=== PATIENT | male | born 1940 | race Caucasian/White ===

== ENCOUNTER → 2018-02-05 | Outpatient (CLI) | payer OTHER ==
[~2018-02-05] MED LIST: ACET325 PO; ASCO500 PO; ASPI81EC PO; ATEN50; ATEN50 PO; CALCAVITDA; CALGLU500; CEPH500 PO; Cephalexin500 M1 PO; Citrate Of Mag300 ML PO; Cranberry300 MG PO; DEXA2 PO; DEXA4 PO; DIGO.125 PO; DIGOX125 MCG; Dulcolax5 MG PO; ERGO400; ERGO400 PO; FENT25TP TOP; FENT50TP TOP; FINA5 PO; FLEC100; FLEC50 PO; GABA300 PO; GUAI600T33 PO; HYDMOR2 PO; MELA3 PO; MULVITA PO; NITR100CA PO; Norco 10-325 T1 EACH PO; OMEP20ER; OMEP20ER PO; OXYC10ER PO; OXYC5; OXYC5 PO; POTA10T PO; Senna8.6 M1 PO; Verotin-Gr Cap1 EACH PO; WARF1 PO; WARF10; WARF5 PO; WARF7.5; WARF7.5 PO
== END ==
LOC: PLD 14:09 → LAB SHORT 14:09
DX: C67.9 Malignant neoplasm of bladder, unspecified (principal); Z93.6 Other artificial openings of urinary tract status
CPT/HCPCS: 88108

== ENCOUNTER 2018-09-29 11:44 | Day surgery (SDC) | payer OTHER ==
[~2018-09-29] VITALS: Ht 188 cm; Wt 74.5 kg
[~2018-09-29 11:44] MED LIST changes: +ACET500; +ATEN25; +CITA20 PO; +CRANBERRY500 M1 PO; +DIGOX125 MCG PO; +LINZESS290 MCG PO; +Multiple Vitam1 EAC1 PO; +Neurontin 300300 MG PO; +Omeprazole20 M1 PO; +Questran4 GM; +TECENTRIQ1200 MG/20 IV; +TOLT4 PO; +VITAMIN D32000 UNIT PO; +Voltaren100 GM TOP; +WARF5
--- NOTE | 2018-09-29 14:11 | NUR ---
09/29/[address] CAUTERIZED AVM DURING EGD 5ML OF NS WAS INJECTED IN POLYP SITE IN COLON
== END 2018-09-29 14:45 | disposition home or self-care (01) ==
LOC: ORSCSDS 11:44
PROVIDERS: Internal Medicine Gastroenterology
PROC: 0DB58ZX Excision of Esophagus, Via Natural or Artificial Opening Endoscopic, Diagnostic (ICD-10-PCS; principal; 2018-09-29 13:00)
PROC: 0DB68ZX Excision of Stomach, Via Natural or Artificial Opening Endoscopic, Diagnostic (ICD-10-PCS; principal; 2018-09-29 13:00)
PROC: 3E0H8GC Introduction of Other Therapeutic Substance into Lower GI, Via Natural or Artificial Opening Endoscopic (ICD-10-PCS; principal; 2018-09-29 13:00)
PROC: 0DBK8ZX Excision of Ascending Colon, Via Natural or Artificial Opening Endoscopic, Diagnostic (ICD-10-PCS; principal; 2018-09-29 13:00)
PROC: 0D568ZZ Destruction of Stomach, Via Natural or Artificial Opening Endoscopic (ICD-10-PCS; principal; 2018-09-29 13:00)
PROC: 0DBL8ZX Excision of Transverse Colon, Via Natural or Artificial Opening Endoscopic, Diagnostic (ICD-10-PCS; principal; 2018-09-29 13:00)
PROC: 0DBM8ZX Excision of Descending Colon, Via Natural or Artificial Opening Endoscopic, Diagnostic (ICD-10-PCS; principal; 2018-09-29 13:00)
DX: R13.10 Dysphagia, unspecified (principal); K29.70 Gastritis, unspecified, without bleeding; Q27.33 Arteriovenous malformation of digestive system vessel; K44.9 Diaphragmatic hernia without obstruction or gangrene; D12.2 Benign neoplasm of ascending colon; D12.3 Benign neoplasm of transverse colon; D12.4 Benign neoplasm of descending colon; K64.1 Second degree hemorrhoids; K57.30 Diverticulosis of large intestine without perforation or abscess without bleeding; Z12.11 Encounter for screening for malignant neoplasm of colon; Z83.71 Family history of colonic polyps; Z86.010 Personal history of colon polyps; I10 Essential (primary) hypertension; E78.00 Pure hypercholesterolemia, unspecified; Z79.899 Other long term (current) drug therapy; Z87.891 Personal history of nicotine dependence
CPT/HCPCS: 88305; 88342; J7120

== ENCOUNTER → 2019-03-19 | Outpatient (CLI) | payer OTHER ==
[~2019-03-19] MED LIST changes: +Lopressor 50 mg50 MG PO
[2019-03-19 08:49] LABS: BASOPHILS ABSOLUTE AUTO 0.03 K/mm3 (0.00-0.23); BASOPHILS PERCENT AUTO 0 % (0-2); EOSINOPHILS ABSOLUTE AUTO 0.14 K/mm3 (0.00-0.68); EOSINOPHILS PERCENT AUTO 2 % (0-6); Hematocrit 36.8 % (37.0-53.0); Hemoglobin 12.1 g/dL (13.5-17.5); IMMATURE GRAN ABSOLUTE AUTO 0.03 K/mm3 (0.00-0.10); IMMATURE GRAN PERCENT AUTO 0 % (0-1); LYMPHOCYTES ABSOLUTE AUTO 1.94 K/mm3 (0.84-5.20); LYMPHOCYTES PERCENT AUTO 20 % (21-46); MONOCYTES ABSOLUTE AUTO 1.38 K/mm3 (0.16-1.47); MONOCYTES PERCENT AUTO 14 % (4-13); Mean Corpuscular HGB 30.1 pg (26.0-34.0); Mean Corpuscular HGB Conc 32.9 g/dL (31.5-36.5); Mean Corpuscular Volume 92 fL (80-100); Mean Platelet Volume 8.9 fL (9.1-12.4); NEUTROPHILS ABSOLUTE AUTO 6.12 K/mm3 (1.96-9.15); NEUTROPHILS PERCENT AUTO 64 % (41-73); Platelet Count 311 K/mm3 (150-400); RDW Coefficient Variation 15.1 % (11.7-14.2); RDW Standard Deviation 50.2 fL (35.1-46.3); Red Blood Cell Count 4.02 M/mm3 (4.30-5.90); White Blood Cell Count 9.64 K/mm3 (4.00-11.30)
[2019-03-19 08:59] LABS: Albumin, Blood 3.6 g/dL (3.4-5.0); Albumin/Globulin Ratio 0.8 (0.8-1.8); Bilirubin, Total 0.6 mg/dL (0.1-1.0); Bun/Creatinine Ratio 15.8 (12.0-20.0); Calcium, Blood 8.9 mg/dL (8.5-10.1); Creatinine, Blood 1.58 mg/dL (0.60-1.20); Globulin, Blood 4.5 g/dL (2.2-4.0); Potassium, Blood 4.1 mmol/L (3.5-5.5); Total Protein, Blood 8.1 g/dL (6.4-8.2)
[2019-03-19 09:13] LABS: Source, Urine Urostomy Bag
[2019-03-19 09:29] LABS: Bacteria Many /hpf; Red Blood Cells, Urine TNTC /hpf (0-2); Squamous Epithelial Cells Not Seen /hpf (Few)
[2019-03-19 09:30] LABS: Renal Epithelial Mod /hpf (0-Rare)
[2019-03-19 09:44] LABS: International Normalized Ratio 2.71; Prothrombin Time Results 26.2 Sec (9.7-11.5)
== END | disposition home or self-care (01) ==
LOC: LAB SHORT 08:43 → LAB EV 08:43
PROVIDERS: Physician Assistant
DX: Z79.01 Long term (current) use of anticoagulants (principal); Z51.81 Encounter for therapeutic drug level monitoring; R31.9 Hematuria, unspecified
CPT/HCPCS: 80053; 81015; 85025; 85610; 87086

== ENCOUNTER 2019-05-27 22:17 | Emergency (ER) | payer OTHER ==
[~2019-05-27] VITALS: Ht 188 cm; Wt 85.3 kg
[~2019-05-27 22:17] MED LIST changes: -Lopressor 50 mg50 MG PO
[2019-05-27 23:01] LABS: BASOPHILS ABSOLUTE AUTO 0.02 K/mm3 (0.00-0.23); BASOPHILS PERCENT AUTO 0 % (0-2); EOSINOPHILS ABSOLUTE AUTO 0.22 K/mm3 (0.00-0.68); EOSINOPHILS PERCENT AUTO 2 % (0-6); Hematocrit 39.6 % (37.0-53.0); Hemoglobin 12.5 g/dL (13.5-17.5); IMMATURE GRAN ABSOLUTE AUTO 0.04 K/mm3 (0.00-0.10); IMMATURE GRAN PERCENT AUTO 0 % (0-1); LYMPHOCYTES PERCENT AUTO 23 % (21-46); MONOCYTES ABSOLUTE AUTO 1.06 K/mm3 (0.16-1.47); MONOCYTES PERCENT AUTO 9 % (4-13); Mean Corpuscular HGB Conc 31.6 g/dL (31.5-36.5); Mean Corpuscular Volume 95 fL (80-100); NEUTROPHILS ABSOLUTE AUTO 7.64 K/mm3 (1.96-9.15); NEUTROPHILS PERCENT AUTO 66 % (41-73); Platelet Count 411 K/mm3 (150-400); RDW Coefficient Variation 14.4 % (11.7-14.2); RDW Standard Deviation 50.3 fL (35.1-46.3); Red Blood Cell Count 4.17 M/mm3 (4.30-5.90); White Blood Cell Count 11.58 K/mm3 (4.00-11.30)
[2019-05-27 23:23] LABS: Alanine Aminotransfer (ALT/SGP 27 U/L (12-78); Albumin, Blood 3.5 g/dL (3.4-5.0); Albumin/Globulin Ratio 0.7 (0.8-1.8); Alk Phos 82 U/L (50-136); Anion Gap 8 mmol/L (6-16); Aspartate Aminotrans (AST/SGOT 15 U/L (12-37); Bilirubin, Total 0.5 mg/dL (0.1-1.0); Blood Urea Nitrogen 27 mg/dL (8-24); Bun/Creatinine Ratio 22.5 (12.0-20.0); CO2, Blood 27 mmol/L (21-32); Calcium, Blood 9.3 mg/dL (8.5-10.1); Chloride, Blood 104 mmol/L (98-108); Glomerular Filtration Rate >60 (60-); Glucose, Blood 138 mg/dL (70-99); Potassium, Blood 3.8 mmol/L (3.5-5.5); Sodium, Blood 139 mmol/L (136-145); Total Protein, Blood 8.5 g/dL (6.4-8.2); Troponin I <0.015 ng/mL (0.000-0.040)
[2019-05-28] MEDS ORDERED: Lopressor 50 mg50 MG PO (02:25)
== END 2019-05-28 02:40 | disposition home or self-care (01) ==
LOC: ER 22:17
PROVIDERS: Emergency Medicine
DX: I48.91 Unspecified atrial fibrillation (principal); Z87.891 Personal history of nicotine dependence; Z79.899 Other long term (current) drug therapy; Z85.51 Personal history of malignant neoplasm of bladder
CPT/HCPCS: 36415; 71046; 80053; 84484; 85025; 93005; 93010; 96361; 96374; 99285-25; J7030

== ENCOUNTER → 2019-08-22 | Outpatient (CLI) | payer OTHER ==
[~2019-08-22] MED LIST changes: +Lopressor 50 mg50 MG PO
[2019-08-24 19:39] LABS: Adenovirus F 40/41 Not Detected (NOT DETECT); Astrovirus Not Detected (NOT DETECT); Campylobacter Sp Not Detected (NOT DETECT); Cryptosporidium Not Detected (NOT DETECT); Cyclospora Cayetanensis Not Detected (NOT DETECT); E. Coli O157 Not Detected (NOT DETECT); Entamoeba Histolytica Not Detected (NOT DETECT); Enteroaggregative E. coli-EAEC Not Detected (NOT DETECT); Enteropathogenic E. coli-EPEC Detected (NOT DETECT); Enterotoxigenic E. coli-ETEC Not Detected (NOT DETECT); Giardia Lamblia Not Detected (NOT DETECT); Norovirus GI/GII Not Detected (NOT DETECT); Plesiomonas Shigelloides Not Detected (NOT DETECT); Rotavirus A Not Detected (NOT DETECT); Salmonella Sp Not Detected (NOT DETECT); Sapovirus Not Detected (NOT DETECT); Shiga Toxin-prod E. coli-STEC Not Detected (NOT DETECT); Shigella/Enteroin E. coli-EIEC Not Detected (NOT DETECT); Vibrio Cholerae Not Detected (NOT DETECT); Vibrio Sp Not Detected (NOT DETECT); Yersinia Enterocolitica Not Detected (NOT DETECT)
== END | disposition home or self-care (01) ==
LOC: OLS 15:30 → LAB SHORT 15:30
PROVIDERS: Physician Assistant Surgical
DX: R19.7 Diarrhea, unspecified (principal)
CPT/HCPCS: 0097U

== ENCOUNTER 2020-01-05 08:21 | Day surgery (SDC) | payer OTHER ==
[~2020-01-05] VITALS: Ht 188 cm; Wt 79.1 kg
[~2020-01-05 08:21] MED LIST changes: +ASPI325 PO
--- NOTE | 2020-01-05 09:04 | NUR ---
01/05/20 0904 Jeremi Hastings PATIENT DETERMINED TO BE ASA APPROPRIATE FOR PROPOFOL SEDATION PRIOR TO START OF PROCEDURE BY 3-LEAD EKG REVIEWED WITH PHYSICIAN PRIOR TO START OF PROCEDURE.Patient to ENDO 1History, Chart, Medications and Allergies reviewed before start of procedure.MONITOR INTACT WITH CONTINUOUS PULSE OXIMETRY AND INTERMITTENT BP.O2 VIA N/C INTACT THROUGHOUT SEDATION/PROCEDURE.
--- NOTE | 2020-01-05 10:26 | NUR ---
Patient up to Ambulate independently WITH WALKER TO BATHROOM. Discharge instructions reviewed with patient. Patient verbalizes understanding. Copy given to patient to take home. Discharged via wheelchair to private car for ride home.
== END 2020-01-05 10:45 | disposition home or self-care (01) ==
LOC: ORSCMMR 08:21 → ORD 09:00 → ORSCMMR 09:00
PROVIDERS: Internal Medicine Gastroenterology
PROC: 0DBE8ZX Excision of Large Intestine, Via Natural or Artificial Opening Endoscopic, Diagnostic (ICD-10-PCS; principal; 2020-01-05 09:00)
PROC: 0DBK8ZX Excision of Ascending Colon, Via Natural or Artificial Opening Endoscopic, Diagnostic (ICD-10-PCS; principal; 2020-01-05 09:00)
DX: R19.7 Diarrhea, unspecified (principal); D12.2 Benign neoplasm of ascending colon; K52.9 Noninfective gastroenteritis and colitis, unspecified; I10 Essential (primary) hypertension; K22.70 Barrett's esophagus without dysplasia; Z79.899 Other long term (current) drug therapy; Z79.82 Long term (current) use of aspirin
CPT/HCPCS: 88305; J2704; J7120

== ENCOUNTER → 2020-02-11 | Outpatient (CLI) | payer OTHER ==
[2020-02-11 15:26] LABS: Adenovirus F 40/41 Not Detected (NOT DETECT); Astrovirus Not Detected (NOT DETECT); Campylobacter Sp Not Detected (NOT DETECT); Cryptosporidium Not Detected (NOT DETECT); Cyclospora Cayetanensis Not Detected (NOT DETECT); E. Coli O157 Not Detected (NOT DETECT); Entamoeba Histolytica Not Detected (NOT DETECT); Enteroaggregative E. coli-EAEC Not Detected (NOT DETECT); Enteropathogenic E. coli-EPEC Not Detected (NOT DETECT); Enterotoxigenic E. coli-ETEC Not Detected (NOT DETECT); Giardia Lamblia Not Detected (NOT DETECT); Norovirus GI/GII Not Detected (NOT DETECT); Plesiomonas Shigelloides Not Detected (NOT DETECT); Rotavirus A Not Detected (NOT DETECT); Salmonella Sp Not Detected (NOT DETECT); Sapovirus Not Detected (NOT DETECT); Shiga Toxin-prod E. coli-STEC Not Detected (NOT DETECT); Shigella/Enteroin E. coli-EIEC Not Detected (NOT DETECT); Vibrio Cholerae Not Detected (NOT DETECT); Vibrio Sp Not Detected (NOT DETECT); Yersinia Enterocolitica Not Detected (NOT DETECT)
== END | disposition home or self-care (01) ==
LOC: LAB 06:00 → LAB SHORT 06:00 → EDSTATUS 12-29 12:10 → LAB FUT 12-29 12:10
PROVIDERS: Internal Medicine Gastroenterology
DX: R19.7 Diarrhea, unspecified (principal)
CPT/HCPCS: 0097U

== ENCOUNTER → 2021-02-06 | Outpatient (CLI) | payer OTHER ==
[2021-02-06 14:23] LABS: Creatinine Urine 43.2 mg/dL (27.00-270.00)
== END | disposition home or self-care (01) ==
LOC: LAB SHORT 06:30 → LAB 06:30
PROVIDERS: Internal Medicine Medical Oncology
DX: C67.6 Malignant neoplasm of ureteric orifice (principal)
CPT/HCPCS: 81050; 82570; 84156

== ENCOUNTER → 2022-05-29 | Outpatient (CLI) | payer OTHER ==
[~2022-05-29] MED LIST changes: +ACETAMINOPHEN500 MG PO; +ANORO ELLIPTA1 EACH INH; +ATOR40TA PO; +Amiodarone HCl200 MG PO; +ELIQUIS5 M2 PO; +FAMO20 PO; +LOSA25 PO; +METO100 PO; +PRED20 PO; +THERA-D2000 UNIT PO
[2022-05-29 14:13] LABS: Protein, Urine Random 199.5 mg/dL (0.0-11.9)
[2022-05-29 14:36] LABS: Creatinine, Urine Random 64.1 mg/dL (27.00-270.00); Protein/Creat Ratio, Ur Random 3.1
== END | disposition home or self-care (01) ==
LOC: LAB SHORT 11:29 → LAB 11:29
PROVIDERS: Internal Medicine Nephrology
DX: N18.32 Chronic kidney disease, stage 3b (principal); R31.9 Hematuria, unspecified; R80.9 Proteinuria, unspecified
CPT/HCPCS: 82043; 82570; 84156

== ENCOUNTER 2022-07-01 12:10 | Inpatient (IN) | payer OTHER, MEDICARE ==
[~2022-07-01] VITALS: Ht 188 cm; Wt 81.0 kg
[2022-07-01 13:02] LABS: BASOPHILS ABSOLUTE AUTO 0.01 K/mm3 (0.00-0.23); BASOPHILS PERCENT AUTO 0 % (0-2); EOSINOPHILS PERCENT AUTO 0 % (0-6); Hematocrit 41.1 % (37.0-53.0); Hemoglobin 13.8 g/dL (13.5-17.5); IMMATURE GRAN ABSOLUTE AUTO 0.01 K/mm3 (0.00-0.10); IMMATURE GRAN PERCENT AUTO 0 % (0-1); LYMPHOCYTES ABSOLUTE AUTO 1.38 K/mm3 (0.84-5.20); LYMPHOCYTES PERCENT AUTO 26 % (21-46); MONOCYTES PERCENT AUTO 9 % (4-13); Mean Corpuscular HGB 31.6 pg (26.0-34.0); Mean Corpuscular HGB Conc 33.6 g/dL (31.5-36.5); Mean Corpuscular Volume 94 fL (80-100); Mean Platelet Volume 9.6 fL (9.1-12.4); NEUTROPHILS PERCENT AUTO 64 % (41-73); Platelet Count 227 K/mm3 (150-400); RDW Coefficient Variation 14.9 % (11.7-14.2); RDW Standard Deviation 51.9 fL (35.1-46.3); Red Blood Cell Count 4.37 M/mm3 (4.30-5.90)
[2022-07-01 13:20] LABS: Albumin/Globulin Ratio 0.8 (0.8-1.8); Bilirubin, Total 0.6 mg/dL (0.1-1.0); Bun/Creatinine Ratio 23.7 (12.0-20.0); Calcium, Blood 8.9 mg/dL (8.5-10.1); Creatinine, Blood 1.69 mg/dL (0.60-1.20); Potassium, Blood 3.5 mmol/L (3.5-5.5)
[2022-07-01] MEDS ORDERED: METO50 PO (14:18)
[2022-07-01] MEDS ORDERED: PRED20 PO (22:01)
--- NOTE | 2022-07-01 23:34 | NUR ---
ADMISSION: PT ARRIVED TO UNIT AT 2200. ABLE TO TRANSFER VIA SBA FROM [facility] TO BED. PT ALERT AND ORIENTED X4, ABLE TO FOLLOW COMMANDS AND MAKE NEEDS KNOWN. HR AFIB 140'S. CARDIZEM GTT IN RAC, TITRATED TO 15MG/HR. MAP >65. NO COMPLAINTS OF CP OR PRESSURE. ON RA SATING >95%. AFEBRILE. PT HAS HX OF BLAADER CANCER, UROSTOMY IN PLACE DRAINING YELLOW URINE TO GRAVITY. RADIAL PULSES STRONG AND EQUAL. R PEDAL PULSE NON PALPABLE, PT STATES THIS IS NORMAL, HX OF DROP FOOT. L PEDAL PULSE FAINT. SKIN, PINK, WARM AND DRY. MEDICATION AND HISTORY REVIEWED WITH AT BEDSIDE. PT ORIENTED TO ROOM AND CALL LIGHT SYSTEM. BED IN LOW, CALL LIGHT IN REACH.
--- NOTE | 2022-07-02 04:14 | NUR ---
SHIFT SUMMARY: PT REMAINS ALERT AND ORIENTED X4, ABLE TO FOLLOW COMMANDS AND MAKE NEEDS KNOWN. SYSTOLIC 90'S DIASTOLIC 80'S, MAP >65, HR REMAINS AFIB 120, CARDIZEM CURRENTLY GTT @5MG/HR. AFEBRILE. SATING >95% ON RA. PT HAS UROSTOMY IN PLACE, APPROX 1200 ML OUT THIS SHIFT. PT STATES NO BM SINCE 06/28, NO BM THIS SHIFT. PT REPOS IND IN BED. BED IN LOW, CALL LIGHT IN REACH, WILL REPORT TO ONCOMING RN.
[2022-07-02 04:56] LABS: Bun/Creatinine Ratio 22.5 (12.0-20.0); Calcium, Blood 8.7 mg/dL (8.5-10.1); Creatinine, Blood 1.51 mg/dL (0.60-1.20); Potassium, Blood 3.2 mmol/L (3.5-5.5)
--- NOTE | 2022-07-02 05:03 | NUR ---
UPDATE: PT CONVERTED FROM AIFB TO NSR @7679. HR 70'S.
--- NOTE | 2022-07-02 08:00 | NUR ---
ASSUMED CARE AT APPROXIMATELY 0720 PT CONVERTED FROM NSR TO AFIB WITH A RATE IN THE 120'S. BP STABLE. O2 SATS >90% ON RA. PT DENIES ANY SYMPTONS OF ELEVATED HEART RATE. PT DENIES ANY PAIN. PT SITTING UP EATING BREAKFAST. UROSTOMY WITH CLEAR URINE OUTPUT. DR. JOHNSON AT BEDSIDE AND NOTIFIED OF RHYTHM CHANGE. DR. MAR CONSULTED. WILL CONTINUE TO MONITOR CLOSELY
--- NOTE | 2022-07-02 17:23 | NUR ---
SHIFT SUMMARY PT REMAINS ALERT AND ORIENTED. O2 SATS REMAIN ABOVE 90% ON RA. HR CONTINUES TO BE AFIB RANGING FROM 120-140. BP WAS SOFT THIS AFTERNOON, BUT HAS IMPROVED. PT ASYMPTOMATIC WITH HIGH HR. UROSTOMY WITH CLEAR YELLOW OUTPUT. PT REPOSITIONING HIMSELF IN THE BED. WILL CONTINUE TO MONITOR AND REPORT TO ONCOMING RN
--- NOTE | 2022-07-02 21:14 | NUR ---
NOTIFIED: CALLED DR MAR DUE TO PT BP 90/73 (80), HEART RATE SUSTAINING BETWEEN 150-170 AND 100MG METOPROLOL DUE NOW. HE STATED TO GIVE 50MG METOPROLOL FOR THIS DOSE, GIVE 40MEQ K PO NOW. AFTER K IS GIVEN, GIVE LOADING DOSE OF DIGOXIN FOLLOWED BY TWO MORE DOSES IV. INFORMED HIM THAT PT PUT OUT 2L URINE FOR DAY SHIFT WELL.
[2022-07-03 04:47] LABS: Bun/Creatinine Ratio 21.5 (12.0-20.0); Calcium, Blood 8.5 mg/dL (8.5-10.1); Creatinine, Blood 1.58 mg/dL (0.60-1.20); Magnesium, Blood 1.7 mg/dL (1.6-2.4); Potassium, Blood 3.8 mmol/L (3.5-5.5)
--- NOTE | 2022-07-03 06:23 | NUR ---
SHIFT SUMMARY: PT HEART RATE INCREASED TO 150-170s AND BP SOFT SBP [address] MAR WHO STATED TO GIVE 50 OF THE 100MG ORDERED METOPROLOL THIS ONE TIME. WELL 40 OF K AND A LOADING DOSE OF DIGOXIN FOLLOWED BY 2 MORE DIGOXIN DOSES IV. PATIENTS BECAME HYPOTENSIVE WITH A MAP OF 58. DR. ROSENBERG ORDERED 1 TIME DOSE OF 5MG MIDODRINE. PT BLOOD PRESSURE 145/104 THIS AM AFTER MIDODRINE. DR. MAR CAME BY AND RN INFORMED HIM OF EVENTS AND HE STATED TO GIVE METOPROLOL 100MG LONG PT IS NOT SYMPTOMATIC, AND TO TAKE MANUAL BLOOD PRESSURES. . PT PT OUT OVER 2L URINE OUTPUT TO UROSTOMY AND HAD 1 BM OVERNIGHT. BREATHING EASILY ON ROOM AIR.
[2022-07-04 05:15] LABS: Albumin, Blood 2.9 g/dL (3.4-5.0); Albumin/Globulin Ratio 0.8 (0.8-1.8); Bilirubin, Total 0.4 mg/dL (0.1-1.0); Bun/Creatinine Ratio 23.3 (12.0-20.0); Calcium, Blood 8.9 mg/dL (8.5-10.1); Creatinine, Blood 1.5 mg/dL (0.60-1.20); Globulin, Blood 3.8 g/dL (2.2-4.0); Magnesium, Blood 2.3 mg/dL (1.6-2.4); Potassium, Blood 3.8 mmol/L (3.5-5.5); Total Protein, Blood 6.7 g/dL (6.4-8.2)
--- NOTE | 2022-07-04 05:56 | NUR ---
MR. MELÉNDEZ HAS A FAIRLY UNEVENTFUL NIGHT AND WAS ABLE TO REST COMFORTABLY. HEART RHYTHM ALTERNATED BETWEEN SINUS RHYTHM WITH PACs AND ATRIAL FIBRILLATION WITH HEART RATES IN THE 60S -70S UNTIL ABOUT 01:30. AT THAT TIME, HIS HEART RATE INCREASED TO 80S - 110S IN ATRIAL FIBRILLATION. BLOOD PRESSURE REMAINS STABLE AND MR. MELÉNDEZ HAD NO COMPLAINTS OF MALAISE OR SHORTNESS OF BREATH.
--- NOTE | 2022-07-04 18:13 | NUR ---
PT SUMMARY: NO ACUTE CHANGE FOR THE SHIFT PT HAS BEEIN IN AND OUT OF AFIB AND SR. RATE IS MOSTLY CONTROLLED 100-140'S WHEN AFIB, 70-80'S ON SR. BP SYSTOLIC 110'S, SATS ABOVE 95% ON RA, AFEBRILE. PT HAS BEEN AMBULATING TO THE BATHROOM, UROSTOMY DRESSING WAS REPLACED BY TODAY BROUGHT IN SOME SUPPLIES FROM HOME. PT HAD ATLEAST 2L OUTPUT TODAY TORSEMIDE DOSE WAS GIVEN TODAY. PT DENIES ANY CHEST PAIN/PRESSURE, C/O HEADACHE 11/26 WHICH IS RELIEVED BY TYLENOL. NO OTHER ISSUES ENCOUNTERED FOR THE SHIFT, PT WITH GREAT APPETITE, CALLS APPROPRIATELY, WILL REPORT TO ONCOMING SHIFT
[2022-07-05 04:35] LABS: Albumin, Blood 3.1 g/dL (3.4-5.0); Albumin/Globulin Ratio 0.8 (0.8-1.8); Bilirubin, Total 0.8 mg/dL (0.1-1.0); Bun/Creatinine Ratio 22.7 (12.0-20.0); Calcium, Blood 8.8 mg/dL (8.5-10.1); Creatinine, Blood 1.72 mg/dL (0.60-1.20); Potassium, Blood 3.4 mmol/L (3.5-5.5); Total Protein, Blood 7.1 g/dL (6.4-8.2)
--- NOTE | 2022-07-05 05:02 | NUR ---
SHIFT SUMMARY PT A&Ox4, CALLS AND COMMUNICATES NEEDS APPROPRIATELY. VSS, BP STABLE, PT REMAINED IN SINUS 60-70's THROUGHOUT THE SHIFT, DENIES CP/PRESSURE, Sp02> 92% RA, DENIES SOB. PT IND IN ROOM. UROSTOMY PATENT AND DRAINING TO GRAVITY. PT DENIED PAIN THROUGHOUT THIS SHIFT AND WAS ABLE TO SLEEP SOUNDLY. NO ACUTE EVENTS THIS SHIFT, WILL REPORT TO DAY SHIFT RN.
[2022-07-05] MEDS ORDERED: METO50ER PO (14:00)
[2022-07-05] MEDS ORDERED: PACERONE400 M3 PO (14:02)
[2022-07-05] MEDS ORDERED: AMIODARONE HCL200 M1 PO (14:04)
[2022-07-05] MEDS ORDERED: AMIODARONE HCL200 MG PO (14:04)
[2022-07-05] MEDS ORDERED: TORSE20 PO (14:06)
== END 2022-07-05 15:10 | disposition home or self-care (01) | DRG 308 ==
LOC: ER 12:10 → PCU 19:54
PROVIDERS: Internal Medicine Cardiovascular Disease; Nurse Practitioner Acute Care; Physician Assistant; ADMIT Internal Medicine
PROC: 5A2204Z Restoration of Cardiac Rhythm, Single (ICD-10-PCS; principal; 2022-07-01)
DX: I48.0 Paroxysmal atrial fibrillation (principal); I50.33 Acute on chronic diastolic (congestive) heart failure; C79.51 Secondary malignant neoplasm of bone; I13.0 Hypertensive heart and chronic kidney disease with heart failure and stage 1 through stage 4 chronic kidney disease, or unspecified chronic kidney disease; I48.92 Unspecified atrial flutter; I25.10 Atherosclerotic heart disease of native coronary artery without angina pectoris; N18.30 Chronic kidney disease, stage 3 unspecified; I95.9 Hypotension, unspecified; K22.70 Barrett's esophagus without dysplasia; J44.9 Chronic obstructive pulmonary disease, unspecified; C67.9 Malignant neoplasm of bladder, unspecified; I73.9 Peripheral vascular disease, unspecified; Z88.0 Allergy status to penicillin; Z79.01 Long term (current) use of anticoagulants; Z79.899 Other long term (current) drug therapy
CPT/HCPCS: 36415; 71046; 80048; 80053; 83690; 83735; 83880; 84484; 85025; 92960; 93005; 93010; 94640; 94664; 94760; 94762; 96365-59; 96367-59; 96375-59; 96376-59; 98960; 99152; 99291-25; A9270; J1160; J3475; J7030; J7040

== ENCOUNTER → 2023-01-04 | Outpatient (CLI) | payer OTHER ==
[~2023-01-04] MED LIST changes: +AMIODARONE HCL200 M1 PO; +AMIODARONE HCL200 MG PO; +DOXY100 PO; +METO50 PO; +METO50ER PO; +PACERONE400 M3 PO; +TORSE20 PO
[2023-01-04 10:04] LABS: BASOPHILS ABSOLUTE AUTO 0.04 K/mm3 (0.00-0.23); BASOPHILS PERCENT AUTO 1 % (0-2); EOSINOPHILS ABSOLUTE AUTO 0.33 K/mm3 (0.00-0.68); EOSINOPHILS PERCENT AUTO 5 % (0-6); Hematocrit 34.2 % (37.0-53.0); Hemoglobin 11.1 g/dL (13.5-17.5); IMMATURE GRAN ABSOLUTE AUTO 0.03 K/mm3 (0.00-0.10); IMMATURE GRAN PERCENT AUTO 0 % (0-1); LYMPHOCYTES ABSOLUTE AUTO 1.65 K/mm3 (0.84-5.20); LYMPHOCYTES PERCENT AUTO 25 % (21-46); MONOCYTES ABSOLUTE AUTO 0.98 K/mm3 (0.16-1.47); MONOCYTES PERCENT AUTO 15 % (4-13); Mean Corpuscular HGB 28.7 pg (26.0-34.0); Mean Corpuscular HGB Conc 32.5 g/dL (31.5-36.5); Mean Corpuscular Volume 88 fL (80-100); Mean Platelet Volume 9.2 fL (9.1-12.4); NEUTROPHILS ABSOLUTE AUTO 3.67 K/mm3 (1.96-9.15); NEUTROPHILS PERCENT AUTO 55 % (41-73); Platelet Count 298 K/mm3 (150-400); RDW Coefficient Variation 15.7 % (11.7-14.2); RDW Standard Deviation 50.8 fL (35.1-46.3); Red Blood Cell Count 3.87 M/mm3 (4.30-5.90)
[2023-01-04 10:13] LABS: Bun/Creatinine Ratio 21.7 (12.0-20.0); Calcium, Blood 9.4 mg/dL (8.5-10.1); Creatinine, Blood 1.43 mg/dL (0.60-1.20); Potassium, Blood 3.5 mmol/L (3.5-5.5)
== END | disposition home or self-care (01) ==
LOC: LAB 09:17 → LAB SHORT 09:17
PROVIDERS: Nurse Practitioner Family
DX: R31.9 Hematuria, unspecified (principal)
CPT/HCPCS: 80048; 85025

== ENCOUNTER → 2023-01-04 | Outpatient (CLI) | payer OTHER | END | disposition home or self-care (01) | LOC: LAB 09:00 → LAB SHORT 09:00 | DX: N39.0 Urinary tract infection, site not specified (principal) | CPT/HCPCS: 87077; 87086; 87186 ==

== ENCOUNTER 2023-07-15 06:09 | Inpatient (IN) | payer OTHER ==
[2023-07-15] VITALS (7 sets, daily range): BP systolic 97–122; BP diastolic 61–85
[~2023-07-15] VITALS: Ht 188 cm; Wt 89.7 kg
[2023-07-15 06:49] LABS: BASOPHILS ABSOLUTE AUTO 0.04 K/mm3 (0.00-0.23); BASOPHILS PERCENT AUTO 0 % (0-2); EOSINOPHILS ABSOLUTE AUTO 0.01 K/mm3 (0.00-0.68); EOSINOPHILS PERCENT AUTO 0 % (0-6); Hematocrit 38.1 % (37.0-53.0); Hemoglobin 12.2 g/dL (13.5-17.5); IMMATURE GRAN ABSOLUTE AUTO 0.07 K/mm3 (0.00-0.10); IMMATURE GRAN PERCENT AUTO 1 % (0-1); LYMPHOCYTES ABSOLUTE AUTO 0.85 K/mm3 (0.84-5.20); LYMPHOCYTES PERCENT AUTO 8 % (21-46); MONOCYTES ABSOLUTE AUTO 0.25 K/mm3 (0.16-1.47); MONOCYTES PERCENT AUTO 2 % (4-13); Mean Corpuscular HGB 28.3 pg (26.0-34.0); Mean Corpuscular Volume 88 fL (80-100); Mean Platelet Volume 9.3 fL (9.1-12.4); NEUTROPHILS ABSOLUTE AUTO 9.06 K/mm3 (1.96-9.15); NEUTROPHILS PERCENT AUTO 88 % (41-73); Platelet Count 244 K/mm3 (150-400); RDW Coefficient Variation 23.6 % (11.7-14.2); Red Blood Cell Count 4.31 M/mm3 (4.30-5.90); White Blood Cell Count 10.28 K/mm3 (4.00-11.30)
[2023-07-15] MEDS ORDERED: METO50ER PO (06:49)
[2023-07-15] MEDS ORDERED: FORMOTEROL20 MCG/2 M NEB (06:50)
[2023-07-15] MEDS ORDERED: BUDESONIDE0.5 MG/2 M NEB (06:51)
[2023-07-15] MEDS ORDERED: ALBU90OI INH (06:52)
[2023-07-15 07:01] LABS: Albumin, Blood 3.3 g/dL (3.4-5.0); Albumin/Globulin Ratio 0.8 (0.8-1.8); Bilirubin, Total 0.8 mg/dL (0.1-1.0); Bun/Creatinine Ratio 14.7 (12.0-20.0); Calcium, Blood 9.3 mg/dL (8.5-10.1); Creatinine, Blood 1.5 mg/dL (0.60-1.20); Globulin, Blood 4.4 g/dL (2.2-4.0); Potassium, Blood 3.8 mmol/L (3.5-5.5); Total Protein, Blood 7.7 g/dL (6.4-8.2)
[2023-07-15 07:11] LABS: Base Excess Venous 5.1 mmol/L; Bicarbonate Venous 27.2 mmol/L (24.0-30.0); PCO2 Venous 47.6 mmHg (38-42); pH Blood Venous 7.41 (7.34-7.37)
[2023-07-15 07:29] LABS: Source, Urine Urostomy Bag
[2023-07-15 07:32] LABS: Influenza A, PCR NEGATIVE (NEGATIVE); Influenza B, PCR NEGATIVE (NEGATIVE); Resp Syncytial Virus, PCR NEGATIVE (NEGATIVE); SARS-Cov-2 (COVID-19) PCR, MMC NEGATIVE (NEGATIVE)
[2023-07-15 07:34] LABS: Appearance, Urine Hazy (Clear); Bilirubin, Urine Neg (Neg); Blood, Urine 5+ (Neg); Color, Urine Amber (P-Yellow); Glucose Qualitative, Urine Neg (Neg); Ketones, Urine Neg (Neg); Leukocyte Esterase, Urine 3+ (Neg); Nitrite, Urine Pos (Neg); Protein, Urine 4+ (Neg); Specific Gravity, Urine 1.015 (1.003-1.022); Urobilinogen, Urine NORM (Normal); pH, Urine 6.5 (5.0-8.0)
[2023-07-15 07:42] LABS: Bacteria Many /hpf; Red Blood Cells, Urine TNTC /hpf (0-2); Squamous Epithelial Cells Rare /hpf (Few); White Blood Cells, Urine 25-50 /hpf (0-5)
[2023-07-15 07:53] LABS: U Amphetamine Screen Not Detected; U Barbituate Screen Not Detected; U Benzodiazapine Screen Not Detected; U Buprenorphine Screen Not Detected; U Cannabinoids Screen Not Detected; U Cocaine Screen Not Detected; U Methadone Screen Not Detected; U Methamphetamine Screen Not Detected; U Opiates Screen Not Detected; U Oxycodone Screen Not Detected; U Phencyclidine Screen Not Detected
--- NOTE | 2023-07-15 12:07 | NUR ---
PT ARRIVED TO ROOM AT 1134. PT AOX4 AND COOPERATIVE OF CARE. PT HAS AT BEDSIDE AND CALL LIGHT WITHIN REACH. PT SETTLED IN NO DISTRESS NOTED AT THIS TIME. WILL CONTINUE TO MONITOR.
--- NOTE | 2023-07-15 16:58 | NUR ---
PT IS AOX4 AND COOPERATIVE OF CARE. PT DENIES ANY PAIN AND HAS BEEN SATING WELL ON RA. NO DISTRESS NOTED AT THIS TIME. CALL LIGHT IS WITHIN REACH. PT HAS NOT GOTTEN OUT OF BED AT THIS TIME HE HAS A UROSTOMY BAG. PT RESTING CURRENTLY AFEBRILE. WILL CONTINUE TO MONITOR.
[2023-07-15] MEDS ORDERED: IRON18 MG PO (17:05)
--- NOTE | 2023-07-15 18:40 | NUR ---
PT HAD AN INCREASE TROPONIN CALLED IN AND DR SÁNCHEZ ORDERED AN EKG. RESULTS WERE SHOWING PT WAS IN AFIB. DR SÁNCHEZ ORDERED A MEDICATION IN WHICH PT NEEDED TO BE MOVED TO PCU. REPORT WAS GIVEN FOR PT PRIOR TO TRANSFER TO [facility]. PT DENIED ANY CHANGES AND NO CHEST PAIN NOTED. TRAVELED DOWN TO NEW ROOM WITH PERSONAL BELONGINGS.
[2023-07-16] VITALS (17 sets, daily range): BP systolic 97–122; BP diastolic 61–98
--- NOTE | 2023-07-16 01:56 | NUR ---
UPDATE PT HRR REMAINS AFIB W/RATE IN 130 - 140'S. BP 120/90 WITH MAP OF 99. PT DENIES CP/PRESSURE, DIZZINESS, SOB OR PALPITATIONS. THIS RN ADMINISTERED 5MG LOPRESSOR IV PER EMAR FOR HR. WILL CONTINUE TO MONITOR AND REASSESS. PT A&O X4 AND INTERACTING WITH THIS RN. PT DENIES NEEDS AT THIS TIME. CALL LIGHT IN REACH
--- NOTE | 2023-07-16 05:40 | NUR ---
SUMMARY THIS RN ASSUMED CARE OF PT AT 1900, REPORT FROM VAUGHN ORELLANA. PT A&O X 2-3; PERIODS OF FORGETFULNESS NOTED ALTHOUGH PT ANSWERS ORIENTATIONS QUESTIONS ACCURATELY. PT'S AT BEDSIDE AT START OF SHIFT. AT START OF SHIFT PT IN NORMAL SINUS RHYTHM WITH RATE IN 80'S, AROUND 1999 PT CONVERTED TO AFIB W/RATE IN 80'S - 90'S. ABOUT 2029 PT HR INCREASED TO 130'S, PT ASYMPTOMATIC. 2099 PT HR INCREASED TO 150'S. THIS RN IN TO SEE PT, PT STATES "HE FEELS LIKE CRAP" BUT DENIES CP/PRESSURE, SOB, DIZZINESS, OR PALPITATIONS. BP 106/79 (MAP OF 89). AMIO GTT STARTED PER EMAR. PT CONTINUES TO BE IN AFIB W/RATE OF 100 - 120'S, BP 1 TEENS - 120'S. PT REPORTS HE IS FEELING "SOMEWHAT BETTER". UROSTOMY IN PLACE AND DRAINING TO GRAVITY. PT REPOSITIONING INDEPENDENTLY. PT HAS OPEN CUT ON R BIG TOE; PT REPORTS HE "SCRAPED IT AT HOME WRESTLING WITH GRANDDAUGHTER". THIS RN DRESSED AND APPLIED OINTMENT PER EMAR. WILL UPDATE ONCOMING RN, CALL LIGHT IN REACH. AMIO GTT STILL INFUSING AT 16.7 MLS/HR.
--- NOTE | 2023-07-16 06:41 | NUR ---
0557 - PT REPORTS CHEST PAIN 5/10 L SIDED, NON RADIATING AND TENDER TO PALPATION. ENDROSES SOA. VITALS OBTAINED AND STABLE PER PT TREND. EKG OBTAINED. NOTIFIED DR. GAITAN OF CHEST PAIN, EKG, AND TYLENOL PO GIVEN. REPEAT TROPONIN ORDERED THIS AM. NO FURTHER ORDERS AT THIS TIME. UPDATED PRIMARY RN
[2023-07-16 10:26] LABS: Vancomycin, Random 14.7 ug/mL
--- NOTE | 2023-07-16 18:10 | NUR ---
SHIFT SUMMARY; ASSUMED CARE AT 0700. A/A/OX4 WITH SLIGHT INTERMITANT CONFUSION. HR SR 130S-140S. CARDIAC CONSULT TODAY, AMNIO DRIP DC'D AT [address] MAR[address] UROSTOMY IN PLACE DRAINING CLEAR LUIS/YELLOW URINE. MOVES SELF ON GURNEY, RIGHT GREAT TOE WITH DRESSING C/D/I SEE PHOTOS IN CHART. DENIES CP, SOB, SPOUSE AT BEDSIDE DURING SHIFT. VSS, WILL CONTINUE TO MONITOR AND TREAT UNTIL CHANGE OF SHIFT.
[2023-07-17 01:56] VITALS: BP 91/60
[2023-07-17 04:15] LABS: Hemoglobin 12.2 g/dL (13.5-17.5); Mean Corpuscular HGB Conc 32.1 g/dL (31.5-36.5); Mean Corpuscular Volume 87 fL (80-100); Mean Platelet Volume 9.4 fL (9.1-12.4); Platelet Count 217 K/mm3 (150-400); RDW Coefficient Variation 23.5 % (11.7-14.2); Red Blood Cell Count 4.35 M/mm3 (4.30-5.90); White Blood Cell Count 14.91 K/mm3 (4.00-11.30)
[2023-07-17 04:41] LABS: Albumin, Blood 2.7 g/dL (3.4-5.0); Anion Gap 5 mmol/L (6-16); Blood Urea Nitrogen 38 mg/dL (8-24); Bun/Creatinine Ratio 16.6 (12.0-20.0); CO2, Blood 31 mmol/L (21-32); Calcium, Blood 9.3 mg/dL (8.5-10.1); Chloride, Blood 102 mmol/L (98-108); Creatinine, Blood 2.29 mg/dL (0.60-1.20); Glomerular Filtration Rate 28 (60-); Glucose, Blood 135 mg/dL (70-99); Phosphorus, Blood 4.2 mg/dL (2.5-4.9); Potassium, Blood 3.4 mmol/L (3.5-5.5); Sodium, Blood 138 mmol/L (136-145); Vancomycin, Random 15.5 ug/mL
--- NOTE | 2023-07-17 06:09 | NUR ---
NOC SHIFT SUMMARY PT ORIENTED X4 BUT FORGETFUL. POOR SHORT TERM MEMORY. PLEASANT AND COOPERATIVE. HR 100-140S OVERNIGHT, PO AMIODARONE AND METOPROLOL FOR RATE CONTROL AND REQUIRED IVP METOPROLOL X1 FOR HR IN 140S. TOLERATED WELL. OTHER VSS OVERNIGHT AND BP MAINTAINED WNL. DENIES PAIN OR DISCOMFORT. UROSTOMY WITH GOOD OUTPUT, PT PLANS TO CHANGE TODAY PER HIS HOME SCHEDULE AND HAS SUPPLIES AT BEDSIDE. NO BM. WILL PASS ON TO DAY RN
[2023-07-17 07:35] VITALS: BP 98/80
[2023-07-17 11:11] VITALS: BP 93/74
--- NOTE | 2023-07-17 13:48 | NUR ---
CONVERTED TO SR @1335 HR IN 70S.
[2023-07-17 15:41] VITALS: BP 115/77
--- NOTE | 2023-07-17 18:08 | NUR ---
PT RHYTHM AFIB HR 130S AT 1535 NOTIFIED BY [employer].
--- NOTE | 2023-07-17 18:17 | NUR ---
SHIFT SUMMARY AOX4. VSS. PATIENT POLITE AND COMPLIANT WITH CARE. SPOUSE AT BEDSIDE MAJORITY OF SHIFT. PT ABLE TO TRANSFER TO CHAIR INDEPENDENTLY. CALL TO DOCTOR MAR ABOUT METOPROLOL PARAMETERS AND DOSE, VERBAL ORDERS GIVEN TO DECREASE DOSE TO 25MG METOPROLOL BID AND PARAMETERS CHANGED SEE ORDER, PT MEDICATED PER EMAR. UROSTOMY DRAINING APPROPRIATELY, URINE YELLOW IN COLOR WITH MINIMAL SEDIMENT. UROSTOMY CHANGED BY SPOUSE. NO ACUTE CHANGES DURING SHIFT.
[2023-07-17 20:28] VITALS: BP 111/76
--- NOTE | 2023-07-17 22:52 | NUR ---
PT ALERT AND ORIENTED X 4, ABLE TO MAKE NEEDS KNOWN, AND COOPERATIVE WITH CARE. PT ON RA AND MAINTAINING 02 SATURATION ABOVE 92% AND DENIES SOB. HR AFIB 120'S-130'S, PT DENIES CHEST PAIN/PRESSURE. PT HAS UROSTOMY DRAINING YELLOW URINE WITH GRAVITY. PT REPORTED 8/10 HEADACHE, PT MEDICATED PER EMAR. PT SAID AT BEGINNING OF SHIFT THAT HE HASN'T BEEN GETTING GOOD SLEEP, I TOLD HIM I WOULD TRY TO LET HIM SLEEP MUCH POSSIBLE TONIGHT. PT IS CURRENTY SLEEPING, CALL LIGHT WITHIN REACH.
[2023-07-17 23:51] VITALS: BP 144/76
[2023-07-18 03:40] VITALS: BP 120/82
--- NOTE | 2023-07-18 06:27 | NUR ---
SHIFT SUMMARY NO ACUTE CHANGES, SEE PREVIOUS NOTES. PT WAS UP TO RESTROOM WITH SBA AND HAD SMALL BM. PT REPORTED SOB W/EXERTION WHICH QUICKLY RESOLVED ONCE BACK TO BED AND LAYING DOWN. UROSTOMY CONTINUES TO DRAIN YELLOW URINE WITH GRAVITY, STOMA PINK. PT CONTINUES TO BE ON RA AND MAINTAINING 02 SATURATION ABOVE 92%, DENIES SOB AT REST. PT CONVERTED TO SR AT 0609 THIS MORNING, PT DENIES CHEST PAIN/PRESSURE. PT HAS SLEPT THE MAJORITY OF THE NIGHT & PT CURRENTLY SLEEPING, CALL LIGHT WITHIN REACH.
[2023-07-18 08:09] LABS: Hemoglobin 11.9 g/dL (13.5-17.5); Mean Corpuscular HGB 27.9 pg (26.0-34.0); Mean Corpuscular HGB Conc 32.2 g/dL (31.5-36.5); Mean Corpuscular Volume 87 fL (80-100); Mean Platelet Volume 9.3 fL (9.1-12.4); Platelet Count 239 K/mm3 (150-400); RDW Coefficient Variation 23.3 % (11.7-14.2); Red Blood Cell Count 4.27 M/mm3 (4.30-5.90); White Blood Cell Count 9.11 K/mm3 (4.00-11.30)
[2023-07-18 08:32] LABS: Albumin, Blood 2.7 g/dL (3.4-5.0); Anion Gap 8 mmol/L (6-16); Blood Urea Nitrogen 40 mg/dL (8-24); Bun/Creatinine Ratio 19.9 (12.0-20.0); CO2, Blood 28 mmol/L (21-32); Calcium, Blood 9.2 mg/dL (8.5-10.1); Chloride, Blood 105 mmol/L (98-108); Creatinine, Blood 2.01 mg/dL (0.60-1.20); Glomerular Filtration Rate 33 (60-); Glucose, Blood 136 mg/dL (70-99); Phosphorus, Blood 3.3 mg/dL (2.5-4.9); Potassium, Blood 3.2 mmol/L (3.5-5.5); Sodium, Blood 141 mmol/L (136-145)
[2023-07-18 08:46] VITALS: BP 115/58
[2023-07-18 09:05] LABS: Bun/Creatinine Ratio 19.2 (12.0-20.0); Calcium, Blood 9.3 mg/dL (8.5-10.1); Creatinine, Blood 2.03 mg/dL (0.60-1.20); Potassium, Blood 3.2 mmol/L (3.5-5.5)
--- NOTE | 2023-07-18 11:05 | NUR ---
PT RIGHT TOE WOUND DRESSING CHANGED AT TIME OF MED PASS IN THE AM.
--- NOTE | 2023-07-18 14:54 | NUR ---
TRANSFER UPDATE REPORT GIVEN TO MED FLOOR RN AT 1425. PT TRANSFERED AT 1445 VIA WHEELCHAIR AND ON RA. PT ABLE TO TRANSFER SLEF TO WHEELCHAIR WITH MINIMAL ASSISTANCE, TOLERATED WELL. PERSONAL BELONGINGS IN BAGS AND TRANSFERED WITH PT. PT MEDS IN GREEN MED BAG AND WITH PT DURING TRANSFER. PT PRESENT AT TIME OF TRANSFER, ASSITED IN CARRYING SOME OF THE PERSONAL BELONGINGS. PT CHART TRANSFERED WITH PT.
[2023-07-18 14:56] VITALS: BP 127/86
--- NOTE | 2023-07-18 17:56 | NUR ---
LATE ENTRY PT TRANSFERED FROM PCU. ALERT AND ORIENTED X4. AT BEDSIDE. TELE. NO C/O OF CHEST PAIN OR PRESSURE. R/A
[2023-07-18 19:24] VITALS: BP 115/79
--- NOTE | 2023-07-19 04:20 | NUR ---
SHIFT SUMMARY PATIET HAD NO ACUTE CHANGES. AXOX 4 AND ONE ASSIST FWW/GB TO BSC. PIV REMAINS INTACT. DENIES CHEST PAIN, SOB, AND N/V. VSS/AFEBRILE. TELE MONITOR NSR W/BBB @ 80. ON ROOM AIR. RT IN FOR BREATHING TX. COOPERATIVE WITH CARE. CALL LIGHT IN REACH. BED IN LOWEST POSITION. WILL CONTINUE TO MONITOR UNTIL DAY SHIFT RN ASSUMES CARE.
[2023-07-19 05:12] VITALS: BP 117/76
[2023-07-19 06:08] LABS: Albumin, Blood 2.8 g/dL (3.4-5.0); Anion Gap 8 mmol/L (6-16); Blood Urea Nitrogen 39 mg/dL (8-24); Bun/Creatinine Ratio 22.2 (12.0-20.0); CO2, Blood 27 mmol/L (21-32); Calcium, Blood 9.4 mg/dL (8.5-10.1); Chloride, Blood 106 mmol/L (98-108); Creatinine, Blood 1.76 mg/dL (0.60-1.20); Glomerular Filtration Rate 38 (60-); Glucose, Blood 126 mg/dL (70-99); Magnesium, Blood 2.3 mg/dL (1.6-2.4); Phosphorus, Blood 3.6 mg/dL (2.5-4.9); Potassium, Blood 3.8 mmol/L (3.5-5.5); Sodium, Blood 141 mmol/L (136-145)
[2023-07-19 07:32] VITALS: BP 108/77
[2023-07-19 09:40] VITALS: BP 112/72
[2023-07-19] MEDS ORDERED: VISBIOME 112.51 EACH PO (10:19)
[2023-07-19] MEDS ORDERED: MUPIROCIN1 G1 TOP (10:19)
[2023-07-19] MEDS ORDERED: Amiodarone HCl200 MG PO (10:20)
[2023-07-19] MEDS ORDERED: LEVOFLOXACIN750 MG PO (10:20)
--- NOTE | 2023-07-19 12:23 | NUR ---
DISCHARGE NOTE- PT WAS GIVEN VERBAL AND WRITTEN DISCHARGE INSTRUCTIONS AND ACKNOWLEDGED UNDERSTANDING OF THEM. PT ESCORTED OUT VIA WC BY HANDLE BENDER. NO S&S OF DISTRESS NOTED AT THE TIME OF DISCHARGE.
== END 2023-07-19 11:51 | disposition home or self-care (01) | DRG 698 ==
LOC: ER 06:09 → PCU 08:38 → MEDS 08:38 → PCU 18:31 → MEDS 07-18 14:53 → ENPENDDIS 07-19 09:42 → MEDS 07-19 11:51
PROVIDERS: Emergency Medicine; Internal Medicine; ADMIT Internal Medicine
DX: T83.518A Infection and inflammatory reaction due to other urinary catheter, initial encounter (principal); A41.51 Sepsis due to Escherichia coli [E. coli]; R65.20 Severe sepsis without septic shock; I21.A1 Myocardial infarction type 2; N39.0 Urinary tract infection, site not specified; E87.20 Acidosis, unspecified; N17.9 Acute kidney failure, unspecified; I13.0 Hypertensive heart and chronic kidney disease with heart failure and stage 1 through stage 4 chronic kidney disease, or unspecified chronic kidney disease; I50.32 Chronic diastolic (congestive) heart failure; I48.20 Chronic atrial fibrillation, unspecified; Y84.8 Other medical procedures as the cause of abnormal reaction of the patient, or of later complication, without mention of misadventure at the time of the procedure; N18.30 Chronic kidney disease, stage 3 unspecified; E78.5 Hyperlipidemia, unspecified; I25.10 Atherosclerotic heart disease of native coronary artery without angina pectoris; K22.70 Barrett's esophagus without dysplasia; F32.A Depression, unspecified; R09.02 Hypoxemia; I27.20 Pulmonary hypertension, unspecified; I73.9 Peripheral vascular disease, unspecified; K59.09 Other constipation; J44.9 Chronic obstructive pulmonary disease, unspecified; S91.101A Unspecified open wound of right great toe without damage to nail, initial encounter; X58.XXXA Exposure to other specified factors, initial encounter; E87.6 Hypokalemia; Z79.01 Long term (current) use of anticoagulants; Z87.891 Personal history of nicotine dependence; Z11.52 Encounter for screening for COVID-19; Z88.0 Allergy status to penicillin; Z85.51 Personal history of malignant neoplasm of bladder; Z90.6 Acquired absence of other parts of urinary tract; Z91.148 Patient's other noncompliance with medication regimen for other reason; Z85.830 Personal history of malignant neoplasm of bone
CPT/HCPCS: 0241U; 36415; 36416; 71045; 80048; 80053; 80069; 80202; 81001; 82565; 82803; 83605; 83735; 83880; 84145; 84484; 85025; 85027; 87040; 87077; 87086; 87186; 93005; 93010; 93306; 94640; 94664; 94760; 94762; 96365; 96366; 96367; 97116; 97162; 97166; 97530; 97535; 99285-25; A9270; J0282; J1956; J3370; J7030; J7050; J7060

== ENCOUNTER 2023-09-18 09:06 | Emergency (ER) | payer OTHER ==
[~2023-09-18] VITALS: Ht 188 cm; Wt 90.7 kg
[~2023-09-18 09:06] MED LIST changes: +ALBU90OI INH; +BUDESONIDE0.5 MG/2 M NEB; +FORMOTEROL20 MCG/2 M NEB; +IRON18 MG PO; +LEVOFLOXACIN750 MG PO; +MUPIROCIN1 G1 TOP; +VISBIOME 112.51 EACH PO
[2023-09-18 09:35] LABS: Source, Urine Urostomy Bag
[2023-09-18 09:39] LABS: Appearance, Urine Hazy (Clear); Bilirubin, Urine Neg (Neg); Blood, Urine 5+ (Neg); Color, Urine Yellow (P-Yellow); Glucose Qualitative, Urine Neg (Neg); Ketones, Urine Neg (Neg); Leukocyte Esterase, Urine 3+ (Neg); Nitrite, Urine Neg (Neg); Protein, Urine 2+ (Neg); Urobilinogen, Urine NORM (Normal)
[2023-09-18 09:49] LABS: Bacteria Many /hpf; Squamous Epithelial Cells Rare /hpf (Few)
[2023-09-18 09:50] LABS: Hyaline Casts 0-2 /lpf (0-2); Mucus Light (0-Heavy)
[2023-09-18 09:51] LABS: BASOPHILS ABSOLUTE AUTO 0.05 K/mm3 (0.00-0.23); BASOPHILS PERCENT AUTO 0 % (0-2); EOSINOPHILS ABSOLUTE AUTO 0.07 K/mm3 (0.00-0.68); EOSINOPHILS PERCENT AUTO 1 % (0-6); Hemoglobin 13.2 g/dL (13.5-17.5); IMMATURE GRAN ABSOLUTE AUTO 0.05 K/mm3 (0.00-0.10); IMMATURE GRAN PERCENT AUTO 0 % (0-1); LYMPHOCYTES PERCENT AUTO 10 % (21-46); MONOCYTES ABSOLUTE AUTO 1.01 K/mm3 (0.16-1.47); MONOCYTES PERCENT AUTO 8 % (4-13); Mean Corpuscular HGB 30.8 pg (26.0-34.0); Mean Corpuscular Volume 93 fL (80-100); NEUTROPHILS ABSOLUTE AUTO 9.85 K/mm3 (1.96-9.15); NEUTROPHILS PERCENT AUTO 81 % (41-73); Platelet Count 231 K/mm3 (150-400); RDW Coefficient Variation 16.1 % (11.7-14.2); RDW Standard Deviation 55.1 fL (35.1-46.3); Red Blood Cell Count 4.29 M/mm3 (4.30-5.90); White Blood Cell Count 12.23 K/mm3 (4.00-11.30)
[2023-09-18 10:09] LABS: Albumin, Blood 3.5 g/dL (3.4-5.0); Albumin/Globulin Ratio 0.9 (0.8-1.8); Bilirubin, Total 0.8 mg/dL (0.1-1.0); Bun/Creatinine Ratio 19.7 (12.0-20.0); Creatinine, Blood 1.52 mg/dL (0.60-1.20); Globulin, Blood 3.9 g/dL (2.2-4.0); Potassium, Blood 3.5 mmol/L (3.5-5.5); Total Protein, Blood 7.4 g/dL (6.4-8.2)
[2023-09-18] MEDS ORDERED: CefTRIAXone Sodium 1,000 MG in NS 50 ML IV ONE (11:20)
[2023-09-18] MEDS ORDERED: CEPH500 PO (13:01)
[2023-09-18 13:37] VITALS: BP 143/119
== END 2023-09-18 13:38 | disposition home or self-care (01) ==
LOC: ER 09:06
PROVIDERS: Physician Assistant
DX: N39.0 Urinary tract infection, site not specified (principal); I48.0 Paroxysmal atrial fibrillation; I73.9 Peripheral vascular disease, unspecified; I13.0 Hypertensive heart and chronic kidney disease with heart failure and stage 1 through stage 4 chronic kidney disease, or unspecified chronic kidney disease; N18.30 Chronic kidney disease, stage 3 unspecified; I50.30 Unspecified diastolic (congestive) heart failure; J44.9 Chronic obstructive pulmonary disease, unspecified; I25.10 Atherosclerotic heart disease of native coronary artery without angina pectoris; E78.5 Hyperlipidemia, unspecified; Z93.6 Other artificial openings of urinary tract status; Z88.0 Allergy status to penicillin; Z79.899 Other long term (current) drug therapy; Z79.01 Long term (current) use of anticoagulants; Z87.891 Personal history of nicotine dependence
CPT/HCPCS: 36415; 80053; 81001; 83605; 85025; 87040; 87077; 87086; 87186; 93005; 93010; 96365; 99284-25; J0696

== ENCOUNTER 2024-09-01 23:39 | Inpatient (IN) | payer OTHER ==
[~2024-09-01] VITALS: Ht 182.9 cm; Wt 84.2 kg
[2024-09-01] MEDS ORDERED: Ondansetron HCl 2 MG / ML 2ML Vial IV ONE (23:50)
[2024-09-01 23:56] LABS: BASOPHILS ABSOLUTE AUTO 0.04 K/mm3 (0.00-0.23); BASOPHILS PERCENT AUTO 0 % (0-2); EOSINOPHILS ABSOLUTE AUTO 0.05 K/mm3 (0.00-0.68); EOSINOPHILS PERCENT AUTO 1 % (0-6); Hematocrit 41.9 % (37.0-53.0); IMMATURE GRAN ABSOLUTE AUTO 0.03 K/mm3 (0.00-0.10); IMMATURE GRAN PERCENT AUTO 0 % (0-1); LYMPHOCYTES ABSOLUTE AUTO 0.64 K/mm3 (0.84-5.20); LYMPHOCYTES PERCENT AUTO 7 % (21-46); MONOCYTES ABSOLUTE AUTO 0.22 K/mm3 (0.16-1.47); MONOCYTES PERCENT AUTO 2 % (4-13); Mean Corpuscular HGB 32.5 pg (26.0-34.0); Mean Corpuscular HGB Conc 33.4 g/dL (31.5-36.5); Mean Corpuscular Volume 97 fL (80-100); Mean Platelet Volume 9.6 fL (9.1-12.4); NEUTROPHILS ABSOLUTE AUTO 8.13 K/mm3 (1.96-9.15); NEUTROPHILS PERCENT AUTO 89 % (41-73); Platelet Count 220 K/mm3 (150-400); RDW Coefficient Variation 13.3 % (11.7-14.2); RDW Standard Deviation 48.2 fL (35.1-46.3); Red Blood Cell Count 4.31 M/mm3 (4.30-5.90); White Blood Cell Count 9.11 K/mm3 (4.00-11.30)
[2024-09-02] VITALS (26 sets, daily range): BP systolic 95–131; BP diastolic 66–95
[2024-09-02] MEDS ORDERED: NS 1,000 ML IV SCH ×2 (00:05→01:30)
[2024-09-02 00:08] LABS: Albumin, Blood 3.1 g/dL (3.4-5.0); Albumin/Globulin Ratio 0.7 (0.8-1.8); Bilirubin, Total 1.4 mg/dL (0.1-1.0); Bun/Creatinine Ratio 23.3 (12.0-20.0); Calcium, Blood 9.3 mg/dL (8.5-10.1); Creatinine, Blood 1.33 mg/dL (0.60-1.20); Globulin, Blood 4.3 g/dL (2.2-4.0); Potassium, Blood 3.2 mmol/L (3.5-5.5); Total Protein, Blood 7.4 g/dL (6.4-8.2)
[2024-09-02] MEDS ORDERED: Metoclopramide HCl 5MG / ML 2ML Vial IV ONE (00:30)
[2024-09-02] MEDS ORDERED: DiphenhydrAMINE HCl 50 MG/ML 1ML Vial IV ONE (00:35)
[2024-09-02 00:41] LABS: Influenza A, PCR NEGATIVE (NEGATIVE); Influenza B, PCR NEGATIVE (NEGATIVE); Resp Syncytial Virus, PCR NEGATIVE (NEGATIVE); SARS-Cov-2 (COVID-19) PCR, MMC NEGATIVE (NEGATIVE)
[2024-09-02] MEDS ORDERED: Diltiazem HCl 5 MG / ML 5ML Vial IV ONE (00:55)
[2024-09-02] MEDS ORDERED: Potassium Chl 20MEQ/Water100ML 100 ML IV SCH (01:30)
[2024-09-02] MEDS ORDERED: Metoprolol Tartrate 1 MG/ML 5 ML VIAL IV PRN (02:35)
[2024-09-02] MEDS ORDERED: FLU VACC TS2024-25(6MOS UP)/PF 45 MCG/0.5 ML SYRINGE IM ONE (02:40)
[2024-09-02] MEDS ORDERED: AMIODARONE HCL100 M5 PO (03:00)
[2024-09-02] MEDS ORDERED: Lactated Ringer's 1,000 ML IV SCH (03:00)
[2024-09-02] MEDS ORDERED: MIRALAX11914 PO (03:02)
[2024-09-02 06:08] LABS: BASOPHILS ABSOLUTE AUTO 0.03 K/mm3 (0.00-0.23); BASOPHILS PERCENT AUTO 0 % (0-2); EOSINOPHILS PERCENT AUTO 0 % (0-6); Hematocrit 37.3 % (37.0-53.0); Hemoglobin 12.4 g/dL (13.5-17.5); IMMATURE GRAN ABSOLUTE AUTO 0.07 K/mm3 (0.00-0.10); IMMATURE GRAN PERCENT AUTO 1 % (0-1); LYMPHOCYTES ABSOLUTE AUTO 0.77 K/mm3 (0.84-5.20); LYMPHOCYTES PERCENT AUTO 6 % (21-46); MONOCYTES ABSOLUTE AUTO 1.16 K/mm3 (0.16-1.47); MONOCYTES PERCENT AUTO 9 % (4-13); Mean Corpuscular HGB 32.4 pg (26.0-34.0); Mean Corpuscular HGB Conc 33.2 g/dL (31.5-36.5); Mean Corpuscular Volume 97 fL (80-100); Mean Platelet Volume 9.8 fL (9.1-12.4); NEUTROPHILS ABSOLUTE AUTO 10.42 K/mm3 (1.96-9.15); NEUTROPHILS PERCENT AUTO 84 % (41-73); Platelet Count 210 K/mm3 (150-400); RDW Coefficient Variation 13.3 % (11.7-14.2); RDW Standard Deviation 47.7 fL (35.1-46.3); Red Blood Cell Count 3.83 M/mm3 (4.30-5.90); White Blood Cell Count 12.45 K/mm3 (4.00-11.30)
--- NOTE | 2024-09-02 06:36 | NUR ---
SHIFT SUMMARY PT ARRIVES TO PCU 5 FROM THE ER AROUND 0515 VIA GURNEY. PT TRANSFERS TO HOSPITAL BED X1 ASSIST. PT ORIENTED TO ROOM AND CALL LIGHT. PT HAS RIGHT FOOT NUMBNESS AND FOOT DROP R/T BONE CA. WEARS A BRACE WHEN AWAKE, HOWEVER IT IS AT HOME. PT ARRIVES ON A DILT GTT INFUSING AT 10 MG PER HOUR. BP STABLE, A-FIB 110-130'S, AFEBRILE, 02 SATS >92% ON RA. DENIES PAIN. PT HAS UROSTOMY, STOMA BEEFY, ADEQUATE AMOUNTS OF YELLOW URINE OUT. NO BM THIS SHIFT, LAST BM WAS 08/28/24. BOWEL CARE ORDERED. BED IN LOWEST POSITION, CALL LIGHT WITHIN REACH. BED ALARM SET FOR PT'S SAFETY.
[2024-09-02 06:40] LABS: Albumin, Blood 2.7 g/dL (3.4-5.0); Albumin/Globulin Ratio 0.7 (0.8-1.8); Bun/Creatinine Ratio 21.4 (12.0-20.0); Calcium, Blood 9.1 mg/dL (8.5-10.1); Creatinine, Blood 1.31 mg/dL (0.60-1.20); Globulin, Blood 3.9 g/dL (2.2-4.0); Total Protein, Blood 6.6 g/dL (6.4-8.2)
[2024-09-02] MEDS ORDERED: Metoprolol Succinate 50 MG TABCR PO SCH ×2 (09:00→17:00)
[2024-09-02] MEDS ORDERED: Enoxaparin 40 MG/0.4 ML SYR SC SCH (09:00)
[2024-09-02] MEDS ORDERED: Apixaban 5 MG Tab PO SCH (09:00)
[2024-09-02] MEDS ORDERED: Amiodarone HCl 200 MG Tab PO SCH (09:00)
--- NOTE | 2024-09-02 17:49 | NUR ---
SHIFT SUMMERY: NEURO: A&OX4. FOLLOWS COMMANDS AND MAKES NEEDS KNOWN TO STAFF. NO ACUTE CHANGES DURING SHIFT. CARDIAC: PT REMAINED ON DILT DRIP FOR A MAJORITY OF THE SHIFT. DILT DRIP WAS TURNED OFF AT 1700 AND GIVEN 100MG METOPROLOL PER DR ROSENBERG. VERBAL ORDERS TO HOLD DILT DRIP UNLESS HR IS SUSTAINING OVER 130. DENIES CP, PRESSURE OR TIGHTNESS DURING SHIFT. RESP: REMAINS ON RA. DENIES ANY SOB. NO SIGNIFICANT EVENTS HAPPENED DURING SHIFT. WILL CONTINUE TO CARE FOR PT TILL END OF SHIFT.
[2024-09-03] VITALS (10 sets, daily range): BP systolic 97–123; BP diastolic 66–86
[2024-09-03 04:00] LABS: Hematocrit 37.7 % (37.0-53.0); Hemoglobin 12.5 g/dL (13.5-17.5); Mean Corpuscular HGB 32.2 pg (26.0-34.0); Mean Corpuscular HGB Conc 33.2 g/dL (31.5-36.5); Mean Corpuscular Volume 97 fL (80-100); Platelet Count 210 K/mm3 (150-400); RDW Coefficient Variation 13.4 % (11.7-14.2); RDW Standard Deviation 48.3 fL (35.1-46.3); Red Blood Cell Count 3.88 M/mm3 (4.30-5.90); White Blood Cell Count 7.91 K/mm3 (4.00-11.30)
--- NOTE | 2024-09-03 04:00 | NUR ---
UPDATE CALL PLACED TO HOSPITALIST REGARDING PATIENT'S HR. HR SUSTAINING 120-130 REGARDLESS OF CARDIZEM GTT INFUSING. PATIENT ASYMPTOMATIC, BP STABLE, DENIES CHEST PAIN. PER HOSPITALIST, CONTINUE CARDIZEM GTT AT THIS TIME. ORDER FOR MAG LEVEL TO BE DRAWN AND UPDATE DR. GAITAN WITH MORNING LAB RESULTS.
[2024-09-03 04:54] LABS: Bun/Creatinine Ratio 20.5 (12.0-20.0); Calcium, Blood 9.2 mg/dL (8.5-10.1); Creatinine, Blood 1.32 mg/dL (0.60-1.20); Magnesium, Blood 2.1 mg/dL (1.6-2.4); Potassium, Blood 3.5 mmol/L (3.5-5.5)
--- NOTE | 2024-09-03 06:13 | NUR ---
SHIFT SUMMARY: A&OX4, FORGETFUL AT TIMES. PLEASANT AND COOPERATIVE WITH CARE. BP STABLE, A-FIB 110-130 S, ADMINISTERED TWO DOSES OF 2.5MG IV LOPRESSOR WITH NO EFFECT. RESTARTED DILT GTT AROUND 2350 AT INITIAL DOSE, AND THEN TITRATED PER EMAR. HR REMAINS IN A-FIB 110-120, OCCASIONAL 130 S. FEBRILE WITH T-MAX 99.9F, 02 SATS >90% ON RA. DENIES PAIN. TOLERATING A HEART HEALTHY DIET WITH GOOD APPETITE. NOOB THIS SHIFT, PT FREQUENTLY REPOSITIONS SELF IN BED. UROSTOMY DRAINING ADEQUATE AMOUNTS OF CLOUDY, YELLOW URINE. NO BM THIS SHIFT, PASSING FLATUS. BED IN LOWEST POSITION, CALL LIGHT WITHIN REACH.
[2024-09-03 07:19] LABS: Bicarbonate Venous 25.3 mmol/L (24.0-30.0); PCO2 Venous 36.7 mmHg (38-42); pH Blood Venous 7.44 (7.34-7.37)
[2024-09-03 07:46] LABS: Source, Urine Urostomy Bag
[2024-09-03 07:56] LABS: Appearance, Urine Hazy (Clear); Bilirubin, Urine Neg (Neg); Blood, Urine 2+ (Neg); Glucose Qualitative, Urine Neg (Neg); Ketones, Urine Neg (Neg); Leukocyte Esterase, Urine 3+ (Neg); Nitrite, Urine Neg (Neg); Protein, Urine Neg (Neg); Urobilinogen, Urine NORM (Normal)
[2024-09-03 08:05] LABS: Color, Urine Pale Yellow (P-Yellow)
[2024-09-03 08:08] LABS: Triple Phosphate Crystals Rare /hpf
[2024-09-03 08:09] LABS: Red Blood Cells, Urine 0-2 /hpf (0-2)
[2024-09-03 08:10] LABS: Bacteria Many /hpf; Squamous Epithelial Cells Rare /hpf (Few)
[2024-09-03] MEDS ORDERED: CefTRIAXone Sodium 1,000 MG in NS 100 ML IV SCH (09:48)
[2024-09-03] MEDS ORDERED: Lactobacil 2-S.Thermo-Bifido 1 1 Cap PO SCH (10:00)
[2024-09-03] MEDS ORDERED: Potassium Chloride 10 Meq Tablet SA PO SCH (10:00)
[2024-09-03] MEDS ORDERED: Digoxin 0.25 MG/ML 2ML Amp IV SCH (11:00)
--- NOTE | 2024-09-03 18:41 | NUR ---
SHIFT SUMMERY: NEURO: PT A&OX4 WITH INTERMITTENT CONFUSIION THROUGHOUT DAY. PT WAS MOSTLY DISORIENTED AFTER WAKING UP BUT WAS VERY EASILY REDIRECTABLE. CARDIAC: PT WAS STARTED ON DIGOXIN THIS AFTERNOON AND CONVERTED TO NSR IN THE 60-70'S AT APPROX 1502 AND HAS MAINTAINED SINCE. PT HAS REMAINED FREE OF ANY CP DURING SHIFT. RESP: PT ON RA. HAS REPORTED SOB WITH ACTIVITY TODAY. LUNG SOUNDS CLEAR. ON SATS >92%. GI/: UROSTOMY STILL CONNECTED TO DRAINAGE BAG AND HAS HAD AN ADEQUATE AMOUNT OF URINARY OUTPUT. NO OTHER SIGNIFICANT EVENTS HAPPENED DURING THIS SHIFT. WILL CONTINUE TO CARE FOR PT TILL END OF SHIFT.
[2024-09-03] MEDS ORDERED: Albuterol HFA200 ACT/6.7 GM INH INH PRN (19:35)
[2024-09-04] VITALS (7 sets, daily range): BP systolic 105–145; BP diastolic 72–124
[2024-09-04 04:36] LABS: BASOPHILS ABSOLUTE AUTO 0.02 K/mm3 (0.00-0.23); BASOPHILS PERCENT AUTO 0 % (0-2); EOSINOPHILS ABSOLUTE AUTO 0.41 K/mm3 (0.00-0.68); EOSINOPHILS PERCENT AUTO 4 % (0-6); Hematocrit 39.4 % (37.0-53.0); Hemoglobin 13.1 g/dL (13.5-17.5); IMMATURE GRAN ABSOLUTE AUTO 0.04 K/mm3 (0.00-0.10); IMMATURE GRAN PERCENT AUTO 0 % (0-1); LYMPHOCYTES ABSOLUTE AUTO 1.95 K/mm3 (0.84-5.20); LYMPHOCYTES PERCENT AUTO 21 % (21-46); MONOCYTES ABSOLUTE AUTO 1.52 K/mm3 (0.16-1.47); MONOCYTES PERCENT AUTO 16 % (4-13); Mean Corpuscular HGB 32.1 pg (26.0-34.0); Mean Corpuscular HGB Conc 33.2 g/dL (31.5-36.5); Mean Corpuscular Volume 97 fL (80-100); Mean Platelet Volume 10.4 fL (9.1-12.4); NEUTROPHILS ABSOLUTE AUTO 5.33 K/mm3 (1.96-9.15); NEUTROPHILS PERCENT AUTO 58 % (41-73); Platelet Count 230 K/mm3 (150-400); RDW Coefficient Variation 13.2 % (11.7-14.2); RDW Standard Deviation 47.7 fL (35.1-46.3); Red Blood Cell Count 4.08 M/mm3 (4.30-5.90); White Blood Cell Count 9.27 K/mm3 (4.00-11.30)
[2024-09-04 04:57] LABS: Bun/Creatinine Ratio 19.5 (12.0-20.0); Calcium, Blood 9.5 mg/dL (8.5-10.1); Creatinine, Blood 1.13 mg/dL (0.60-1.20); Potassium, Blood 3.8 mmol/L (3.5-5.5)
--- NOTE | 2024-09-04 07:15 | NUR ---
SHIFT SUMMARY: A&OX4, PLEASANTLY CONFUSED, BUT COOPERATIVE WITH CARE. BP STABLE, A-FIB 110-130'S, ADMINISTERED 5MG IV LOPRESSOR WITH NO EFFECT, 02 SATS >90% ON RA. DENIES PAIN. TOLERATING A HEART HEALTHY DIET. PT FREQUENTLY REPOSITIONS SELF IN BED. UROSTOMY DRAINING ADEQUATE AMOUNTS OF CLOUDY, PALE YELLOW URINE. LARGE, INCONTINENT BM THIS SHIFT. PULL-UP IN PLACE AND CHANGED NEEDED. X1 ASSIST TO BSC. BED IN LOWEST POSITION, CALL LIGHT WITHIN REACH. BED ALARM SET FOR PT'S SAFETY.
[2024-09-04] MEDS ORDERED: Digoxin 0.125 MG Tab PO SCH (08:00)
[2024-09-04] MEDS ORDERED: Digoxin 0.25 MG/ML 2ML Amp IV ONE ×2 (10:30→17:00)
[2024-09-04] MEDS ORDERED: Tiotropium Bromide 2.5 MCG/ACT MIST INHAL (10 ACT/4 GM) INH SCH (15:00)
[2024-09-04 17:49] LABS: Digoxin (Lanoxin) 1.74 ug/mL (0.80-2.00)
--- NOTE | 2024-09-04 17:59 | NUR ---
SHIFT SUMMARY A&Ox3-4, CALLS AND COMMUNICATES NEEDS APPROPRIATELY. PT WAKES UP A LITTLE CONFUSED INITIALLY BUT REORIENTS QUICKLY. BP STABLE, AFIB 90-110's UP TO 130'S AT TIMES, DENIES CP/PRESSURE. SpO2> 92% RA, DENIES SOB, C/O COUGH WHEN WAKING UP. 1 ASSIST w/ FWW. NO BM THIS SHIFT. UROSTOMY PATENT, DRAINING PALE YELLOW URINE TO GRAVITY. NO C/O PAIN. NO OTHER EVENTS, WILL REPORT TO ONCOMING RN.
[2024-09-05] VITALS (8 sets, daily range): BP systolic 91–129; BP diastolic 54–108
--- NOTE | 2024-09-05 00:51 | NUR ---
SHIFT SUMMARY NEURO: A/OX4. FORGETFUL AFTER WAKING. MOVES ALL EXTREMETIES WITH EXCEPTION TO A BASELINE RT FOOT DROP. CARDIAC: HR 70'S-150'S, DRAMATIC RATE CHANGES PRIOR TO PO METOPROLOL. NO EDEMA. RT PEDAL PULSE THREADY, LEFT STRONG. RADIAL PULSES STRONG. NO CALF PAIN. LUNGS: WNL GI/: UROSTOMY IN PLACE, DRAINING CLEAR YELLOW URINE. NO BM CHARTED SINCE ADMIT. NO COMPLAINTS FROM PATIENT. ACTIVE BOWEL SOUNDS
[2024-09-05 03:38] LABS: Hemoglobin 13.7 g/dL (13.5-17.5); Mean Corpuscular HGB 31.5 pg (26.0-34.0); Mean Corpuscular HGB Conc 32.6 g/dL (31.5-36.5); Mean Corpuscular Volume 97 fL (80-100); Mean Platelet Volume 9.4 fL (9.1-12.4); Platelet Count 251 K/mm3 (150-400); RDW Coefficient Variation 13.2 % (11.7-14.2); RDW Standard Deviation 47.3 fL (35.1-46.3); Red Blood Cell Count 4.35 M/mm3 (4.30-5.90); White Blood Cell Count 8.38 K/mm3 (4.00-11.30)
[2024-09-05 04:00] LABS: Albumin, Blood 2.8 g/dL (3.4-5.0); Albumin/Globulin Ratio 0.7 (0.8-1.8); Bilirubin, Total 0.5 mg/dL (0.1-1.0); Bun/Creatinine Ratio 21.8 (12.0-20.0); Calcium, Blood 9.6 mg/dL (8.5-10.1); Creatinine, Blood 1.1 mg/dL (0.60-1.20); Globulin, Blood 4.1 g/dL (2.2-4.0); Phosphorus, Blood 3.6 mg/dL (2.5-4.9); Potassium, Blood 3.8 mmol/L (3.5-5.5); Total Protein, Blood 6.9 g/dL (6.4-8.2)
[2024-09-05 04:24] LABS: BASOPHILS PERCENT MAN 0 % (0-2); EOSINOPHILS ABSOLUTE MAN 0.67 K/mm3 (0.00-0.68); EOSINOPHILS PERCENT MAN 8 % (0-6); LYMPHOCYTES % ATYPICAL MANUAL 1 % (0-0); LYMPHOCYTES ABSOLUTE MAN 1.92 K/mm3 (0.84-5.20); LYMPHOCYTES PERCENT MAN 22 % (21-46); MONOCYTES ABSOLUTE MAN 0.92 K/mm3 (0.16-1.47); MONOCYTES PERCENT MAN 11 % (4-13); NEUTROPHILS ABSOLUTE MAN 4.86 K/mm3 (1.96-9.15); SEG NEUTROPHILS PERCENT MAN 58 % (41-73); TOTAL CELLS COUNTED 100
[2024-09-05] MEDS ORDERED: Torsemide 20 MG TAB PO SCH (08:10)
[2024-09-05 08:42] LABS: Free Thyroxine 1.57 ng/dL (0.70-1.60); Thyroid Stimulating Hormone 1.53 uIU/mL (0.360-4.800); Triiodothyronine, Free 1.61 pg/mL (2.18-3.98)
[2024-09-05] MEDS ORDERED: Omeprazole 20 MG CapCR PO SCH (09:00)
[2024-09-05] MEDS ORDERED: Cholecalciferol 1000 Unit Tablet (=25MCG) PO SCH (09:00)
[2024-09-05] MEDS ORDERED: Metoprolol Succinate 50 MG TABCR PO ONE (13:00)
[2024-09-05] MEDS ORDERED: Potassium Chloride 10 Meq Tablet SA PO ONE (13:00)
[2024-09-05] MEDS ORDERED: Empagliflozin 10 MG TAB PO SCH (13:00)
--- NOTE | 2024-09-05 17:06 | NUR ---
SHIFT SUMMARY A&Ox4, CALLS AND COMMUNICATES NEEDS APPROPRIATELY. NO MOMENTS OF CONFUSION THIS SHIFT. AFIB 90-120's AT START OF SHIFT, CONVERTED TO SINUS 60's AT APPROXIMATELY 1310 AFTER 3sec PAUSE, BP SOFT WITH SBP 90's, MAP> 65, ASYMPTOMATIC, DENIES CP/PRESSURE. PT REMAINS SINUS 60's. SpO2> 92% RA, DENIES SOB. 1 ASSIST w/ FWW. NO BM THIS SHIFT. UROSTOMY PATENT, DRAINING PALE YELLOW URINE TO GRAVITY. NO C/O PAIN. NO OTHER EVENTS, WILL REPORT TO ONCOMING RN.
[2024-09-05] MEDS ORDERED: Citalopram Hydrobromide 20 MG Tab PO SCH (21:00)
[2024-09-05] MEDS ORDERED: Metoprolol Succinate 50 MG TABCR PO SCH (21:00)
[2024-09-05] MEDS ORDERED: Atorvastatin 40 MG Tab PO SCH (21:00)
[2024-09-06 00:35] VITALS: BP 110/79
--- NOTE | 2024-09-06 01:09 | NUR ---
SHIFT SUMMARY- PO METOP HELD NO OTHER ACUTE CHANGES NEURO; A/O X4. BASELINE RLE FOOT DROP. PERRLA. CARDIAC: HR HAS BEEN IN THE 60'S CONSISTENTLY. LUNGS:WNL.
[2024-09-06 03:28] VITALS: BP 105/62
[2024-09-06 04:13] LABS: BASOPHILS ABSOLUTE AUTO 0.06 K/mm3 (0.00-0.23); BASOPHILS PERCENT AUTO 1 % (0-2); EOSINOPHILS ABSOLUTE AUTO 0.75 K/mm3 (0.00-0.68); EOSINOPHILS PERCENT AUTO 9 % (0-6); Hematocrit 41.1 % (37.0-53.0); Hemoglobin 13.6 g/dL (13.5-17.5); Mean Corpuscular HGB 31.8 pg (26.0-34.0); Mean Corpuscular HGB Conc 33.1 g/dL (31.5-36.5); Mean Corpuscular Volume 96 fL (80-100); Mean Platelet Volume 9.8 fL (9.1-12.4); Platelet Count 272 K/mm3 (150-400); RDW Coefficient Variation 13.1 % (11.7-14.2); RDW Standard Deviation 46.5 fL (35.1-46.3); Red Blood Cell Count 4.28 M/mm3 (4.30-5.90); White Blood Cell Count 8.36 K/mm3 (4.00-11.30)
[2024-09-06 04:15] LABS: IMMATURE GRAN ABSOLUTE AUTO 0.07 K/mm3 (0.00-0.10); IMMATURE GRAN PERCENT AUTO 1 % (0-1); LYMPHOCYTES ABSOLUTE AUTO 2.23 K/mm3 (0.84-5.20); LYMPHOCYTES PERCENT AUTO 27 % (21-46); MONOCYTES ABSOLUTE AUTO 0.96 K/mm3 (0.16-1.47); MONOCYTES PERCENT AUTO 12 % (4-13); NEUTROPHILS ABSOLUTE AUTO 4.29 K/mm3 (1.96-9.15); NEUTROPHILS PERCENT AUTO 51 % (41-73)
[2024-09-06 04:38] LABS: Albumin, Blood 2.9 g/dL (3.4-5.0); Albumin/Globulin Ratio 0.7 (0.8-1.8); Bilirubin, Total 0.4 mg/dL (0.1-1.0); Bun/Creatinine Ratio 25.2 (12.0-20.0); Calcium, Blood 9.6 mg/dL (8.5-10.1); Creatinine, Blood 1.39 mg/dL (0.60-1.20); Globulin, Blood 4.1 g/dL (2.2-4.0); Potassium, Blood 3.7 mmol/L (3.5-5.5)
[2024-09-06] MEDS ORDERED: Potassium Chloride 10 Meq Tablet SA PO ONE (09:00)
[2024-09-06 09:32] VITALS: BP 97/65
[2024-09-06] MEDS ORDERED: NS 1,000 ML IV SCH (10:15)
[2024-09-06] MEDS ORDERED: Metoprolol Succinate 50 MG TABCR PO ONE (11:00)
[2024-09-06 11:48] VITALS: BP 98/78
[2024-09-06 13:00] VITALS: BP 115/66
[2024-09-06] MEDS ORDERED: DIGOX125 MC1 PO (15:53)
[2024-09-06] MEDS ORDERED: TIOT18 INH (15:54)
[2024-09-06] MEDS ORDERED: JARDIANCE10 MG PO (15:54)
[2024-09-06 16:19] VITALS: BP 103/69
--- NOTE | 2024-09-06 17:10 | NUR ---
DISCHARGE SUMMARY A&Ox4, CALLS AND COMMUNICATES NEEDS APPROPRIATELY. NO MOMENTS OF CONFUSION THIS SHIFT. REMIANED SINUS 60's BP SOFT WITH SBP 90's, MAP> 65, ASYMPTOMATIC, DENIES CP/PRESSURE. SpO2> 92% RA, DENIES SOB. 1 ASSIST w/ FWW. NO BM THIS SHIFT. UROSTOMY PATENT, DRAINING PALE YELLOW. DISCHARGE INSTRUCTIONS PROVIDED WITH AT [facility]. PT TAKEN OUT VIA WHEELCHAIR BY CLINICAL STAFF MEMBER WITH ALL PT BELONGINGS AT APPROXIMATELY 1700.
[2024-09-07] MEDS ORDERED: Digoxin 0.125 MG Tab PO SCH (09:00)
== END 2024-09-06 16:35 | disposition home or self-care (01) | DRG 309 ==
LOC: ER 23:39 → ERHOLD 23:40 → PCU 23:40 → ER 09-02 02:34 → ERHOLD 09-02 02:34 → PCU 09-02 04:15
PROVIDERS: Emergency Medicine; Family Medicine; Internal Medicine; ADMIT Student in an Organized Health Care Education/Training Program
DX: I48.11 Longstanding persistent atrial fibrillation (principal); C79.51 Secondary malignant neoplasm of bone; I50.32 Chronic diastolic (congestive) heart failure; K22.70 Barrett's esophagus without dysplasia; N18.30 Chronic kidney disease, stage 3 unspecified; F32.A Depression, unspecified; K21.9 Gastro-esophageal reflux disease without esophagitis; E87.6 Hypokalemia; I95.9 Hypotension, unspecified; D72.829 Elevated white blood cell count, unspecified; I27.20 Pulmonary hypertension, unspecified; R74.01 Elevation of levels of liver transaminase levels; I73.9 Peripheral vascular disease, unspecified; C67.9 Malignant neoplasm of bladder, unspecified; J44.9 Chronic obstructive pulmonary disease, unspecified; E86.0 Dehydration; I48.92 Unspecified atrial flutter; Z88.0 Allergy status to penicillin; Z79.51 Long term (current) use of inhaled steroids; Z79.01 Long term (current) use of anticoagulants; Z79.2 Long term (current) use of antibiotics; Z86.73 Personal history of transient ischemic attack (TIA), and cerebral infarction without residual deficits; Z87.891 Personal history of nicotine dependence
CPT/HCPCS: 0241U; 36415; 71045; 74018; 80048; 80053; 80162; 81001; 82803; 83690; 83735; 84100; 84439; 84443; 84481; 85025; 85027; 87086; 93005; 93010; 94640; 94664; 94762; 96365; 96366; 96375; 97110; 97116; 97162; 97165; 97530; 97535; 99285-25; A9270; G0378; J0696; J1160; J1200; J2405; J2765; J3480; J7030

== ENCOUNTER 2025-02-24 12:01 | Day surgery (SDC) | payer OTHER ==
[~2025-02-24] VITALS: Ht 188 cm; Wt 79.4 kg
[~2025-02-24 12:01] MED LIST changes: +AMIODARONE HCL100 M5 PO; +Balanced Salt Epinephrine Irrigation Solution 500 mL IR SCH; +Calcium Carbon500 MG PO; +DIGOX125 MC1 PO; +INSULANI SC; +JARDIANCE10 MG PO; +Keflex250 MG PO; +MELATONIN5 M1 PO; +MIRALAX11914 PO; +MUPIROCIN2210 TP; +Moxifloxacin HCL 0.5 MG/0.1 ML 0.4MLSYR RIGHTEYE SCH; +OXYC10TA19 PO; +Ondansetron 4 MG SoluTab MM PRN; +PHENYLEPHRINE\\TROPICAMIDE\\TETRACAINE OPHTHALMIC DILATING SOLN RIGHTEYE PRN; +Povidone-Iodine 450 DROP/30 ML Solution ONE; +Povidone-Iodine 450 DROP/30 ML Solution RIGHTEYE SCH; +TIOT18 INH; +Tetracaine HCl/Pf 0.5% Opth Soln 4 ml ONE; +diazePAM 5 MG,diazePAM 2 MG PO SCH
[2025-02-24] MEDS ORDERED: Tetracaine HCl 0.5% Opth Soln 15 ml RIGHTEYE ONE (13:23)
--- NOTE | 2025-02-24 13:27 | NUR ---
02/24/25 1327 Lissa Anne N 142/81 62 97% 10% L BLOW BY O2 20
[2025-02-24 13:52] VITALS: BP 143/82
== END 2025-02-24 14:10 | disposition home or self-care (01) ==
LOC: ORSCSDS 12:01
PROVIDERS: Student in an Organized Health Care Education/Training Program
PROC: 08RJ3JZ Replacement of Right Lens with Synthetic Substitute, Percutaneous Approach (ICD-10-PCS; principal; 2025-02-24 13:30)
DX: H25.813 Combined forms of age-related cataract, bilateral (principal); H04.123 Dry eye syndrome of bilateral lacrimal glands; H00.15 Chalazion left lower eyelid; H52.4 Presbyopia; I10 Essential (primary) hypertension; Z86.73 Personal history of transient ischemic attack (TIA), and cerebral infarction without residual deficits; I48.91 Unspecified atrial fibrillation; Z87.891 Personal history of nicotine dependence; Z79.01 Long term (current) use of anticoagulants; Z79.899 Other long term (current) drug therapy
CPT/HCPCS: A9270; V2632

== ENCOUNTER 2025-03-03 07:42 | Day surgery (SDC) | payer OTHER ==
[~2025-03-03] VITALS: Ht 188 cm; Wt 78.9 kg
[~2025-03-03 07:42] MED LIST changes: -Balanced Salt Epinephrine Irrigation Solution 500 mL IR SCH; -Moxifloxacin HCL 0.5 MG/0.1 ML 0.4MLSYR RIGHTEYE SCH; -Ondansetron 4 MG SoluTab MM PRN; -PHENYLEPHRINE\\TROPICAMIDE\\TETRACAINE OPHTHALMIC DILATING SOLN RIGHTEYE PRN; -Povidone-Iodine 450 DROP/30 ML Solution RIGHTEYE SCH; -diazePAM 5 MG,diazePAM 2 MG PO SCH
[2025-03-03] MEDS ORDERED: Ondansetron 4 MG SoluTab MM PRN ×2 (07:50→07:55)
[2025-03-03] MEDS ORDERED: Povidone-Iodine 450 DROP/30 ML Solution LEFTEYE SCH (07:55)
[2025-03-03] MEDS ORDERED: diazePAM 5 MG,diazePAM 2 MG PO SCH (07:55)
[2025-03-03] MEDS ORDERED: PHENYLEPHRINE\\TROPICAMIDE\\TETRACAINE OPHTHALMIC DILATING SOLN LEFTEYE PRN (07:55)
[2025-03-03] MEDS ORDERED: Balanced Salt Epinephrine Irrigation Solution 500 mL IR SCH (07:55)
[2025-03-03] MEDS ORDERED: Moxifloxacin HCL 0.5 MG/0.1 ML 0.4MLSYR LEFTEYE SCH (07:55)
--- NOTE | 2025-03-03 08:16 | NUR ---
03/03/25 0816 Macrina Gtuierrez PT REPORTS ANXIETY LEVEL 0/10 PRIOR TO ADMINISTRATION OF VALIUM 7MG PO @ 0816.
--- NOTE | 2025-03-03 09:12 | NUR ---
03/03/25 0912 Kia Burgos HR: 93 RR: 14 BP: 117/83 SPO2: 94% ON 4L NC
[2025-03-03 09:30] VITALS: BP 105/76
[2025-03-04] MEDS ORDERED: Moxifloxacin HCL 0.5 MG/0.1 ML 0.4MLSYR LEFTEYE SCH (06:00)
[2025-03-04] MEDS ORDERED: Povidone-Iodine 450 DROP/30 ML Solution LEFTEYE SCH (06:00)
[2025-03-04] MEDS ORDERED: PHENYLEPHRINE\\TROPICAMIDE\\TETRACAINE OPHTHALMIC DILATING SOLN LEFTEYE PRN (06:00)
[2025-03-04] MEDS ORDERED: diazePAM 5 MG,diazePAM 2 MG PO SCH (06:00)
[2025-03-04] MEDS ORDERED: Balanced Salt Epinephrine Irrigation Solution 500 mL IR SCH (06:00)
== END 2025-03-03 09:46 | disposition home or self-care (01) ==
LOC: ORSCSDS 07:42
PROVIDERS: Student in an Organized Health Care Education/Training Program
PROC: 08RK3JZ Replacement of Left Lens with Synthetic Substitute, Percutaneous Approach (ICD-10-PCS; principal; 2025-03-03 09:00)
DX: H25.812 Combined forms of age-related cataract, left eye (principal); Z96.1 Presence of intraocular lens; Z87.891 Personal history of nicotine dependence; I48.91 Unspecified atrial fibrillation; Z79.01 Long term (current) use of anticoagulants; I10 Essential (primary) hypertension; Z86.73 Personal history of transient ischemic attack (TIA), and cerebral infarction without residual deficits; Z79.899 Other long term (current) drug therapy
CPT/HCPCS: A9270; V2632